=== PATIENT | male | born 1980 ===

== ENCOUNTER 2017-11-06 14:28 | Outpatient (CLI) | payer BC ==
--- NOTE | 2017-11-06 15:40 | RAD ---
CERVICAL SPINE RADIOGRAPHS THREE VIEWS 11/06/17 PROVIDED CLINICAL HISTORY: Neck pain. FINDINGS: Cervical alignment appears normal. Vertebral body heights appear preserved. There is disc space narro wing at C6-7. Visualized lung apices appear clear. There is no prevertebral soft tissue swelling appa rent. IMPRESSION: Lower cervical disc degenerative change. POS: [facility]
== END 2017-11-06 14:29 | disposition home or self-care (01) ==
LOC: RAD-FRANK 14:28
PROVIDERS: ATTEND Internal Medicine
DX: M54.2 Cervicalgia (principal); M47.892 Other spondylosis, cervical region
CPT/HCPCS: 72040